=== PATIENT | female | born 1990 | race Hispanic/Latino ===

== ENCOUNTER 2018-06-17 14:47 | Emergency (ER) | payer OTHER ==
[2018-06-17] MEDS ORDERED: Lidocaine 1% PF 5 ML VIAL ONE (15:17)
== END 2018-06-17 16:29 | disposition home or self-care (01) ==
LOC: ERS 14:47
DX: O98.912 Unspecified maternal infectious and parasitic disease complicating pregnancy, second trimester (principal); K61.0 Anal abscess; Z3A.24 24 weeks gestation of pregnancy
CPT/HCPCS: 10080; J2001

== ENCOUNTER → 2021-02-08 | Emergency (ER) | payer OTHER, SELFPAY ==
[~2021-02-08] MED LIST: Fentanyl 100 MCG/2 ML VIAL ONE; Iopamidol-370 76% 500 ML 1 ML ONE; Ondansetron PF 4 MG/2 ML Vial ONE
== END ==
LOC: ERS 18:38
DX: S46.911A Strain of unspecified muscle, fascia and tendon at shoulder and upper arm level, right arm, initial encounter (principal); R10.9 Unspecified abdominal pain; F17.210 Nicotine dependence, cigarettes, uncomplicated; V89.2XXA Person injured in unspecified motor-vehicle accident, traffic, initial encounter
CPT/HCPCS: 70450; 71260; 72125; 74177; 96374; 96375; G0390; J2405; J3010; Q9967